=== PATIENT | male | born 1925 | race Caucasian/White ===

== ENCOUNTER → 2016-09-02 | Outpatient (CLI) | payer MEDICARE, OTHER | LOC: RAD 08:53 | DX: M13.852 Other specified arthritis, left hip (principal); M13.862 Other specified arthritis, left knee; M16.12 Unilateral primary osteoarthritis, left hip; Z96.652 Presence of left artificial knee joint | CPT/HCPCS: 73502; 73564 ==

== ENCOUNTER → 2016-09-11 | Outpatient (CLI) | payer MEDICARE, OTHER | LOC: US 13:00 | DX: N18.3 Chronic kidney disease, stage 3 (moderate) (principal) ==

== ENCOUNTER → 2016-09-30 | Outpatient (CLI) | payer MEDICARE, OTHER | LOC: KOH-I 09-25 11:30 | DX: M13.852 Other specified arthritis, left hip (principal); M16.12 Unilateral primary osteoarthritis, left hip | CPT/HCPCS: 73700 ==